=== PATIENT | female | born 1960 | race African-American/Black ===

== ENCOUNTER 2021-10-04 08:16 | Inpatient (IN) | payer OTHER, BC ==
[~2021-10-04] VITALS: Ht 165.1 cm; Wt 46.7 kg
[2021-10-04] MEDS ORDERED: VANCOMYCIN 1 G PREMIX 200 ML IV ONE (09:15)
[2021-10-04] MEDS ORDERED: SODIUM CHLORIDE 0.9% 1000ML BAG (SEPSIS BOLUS) IV ONE (09:15)
[2021-10-04] MEDS ORDERED: PIPERACILLIN/TAZ 3.375G PREMIX 50 ML IV ONE (09:15)
[2021-10-04 09:43] LABS: BASOPHILS % 0.1 % (0.0-2.0); HEMATOCRIT. 51.1 % (36.0-48.0); HEMOGLOBIN. 17.8 g/dL (12.0-16.0); LYMPHOCYTES % 9.5 % (20.0-50.0); MEAN CORPUSCULAR HEMOGLOBIN 38.3 pg (28.0-32.0); MONOCYTES % 8.2 % (2.0-8.0); NEUTROPHILS % 82.2 % (40.0-76.0); PLATELET 202 x1000/uL (130-400); RED BLOOD CELL COUNT 4.64 mill/uL (4.2-5.4); RED CELL DISTRIBUTION WIDTH 12.8 % (11.6-14.6)
[2021-10-04 09:50] LABS: CHLORIDE 98 mEq/L (98-107)
[2021-10-04 10:26] LABS: PLATELET ESTIMATE NORMAL
[2021-10-04] MEDS ORDERED: MORPHINE SULFATE 4 MG/ML CPJ (NOT FOR IM USE) IV PRN (18:30)
[2021-10-04] MEDS ORDERED: ALBUMIN HUMAN 25GM/100ML (25%) IV ONE (18:37)
[2021-10-04] MEDS ORDERED: CALCIUM CHLORIDE 1GM/10ML SYR IV ONE (18:37)
[2021-10-04] MEDS ORDERED: SODIUM BICARBONATE 8.4% 1 MEQ/ML 50ML SYR IV ONE (18:38)
[2021-10-04] MEDS ORDERED: NALOXONE HCL 0.4MG/ML VIAL IV PRN (18:45)
[2021-10-04] MEDS ORDERED: ROCURONIUM BROMIDE 10MG/ML VIAL 5ML IV ONE (18:50)
[2021-10-04] MEDS ORDERED: PROPOFOL 200MG/20ML VIAL IV ONE (18:50)
[2021-10-04] MEDS ORDERED: POTASSIUM CHLORIDE 40MEQ/20ML INJ IV ONE (18:55)
[2021-10-04] MEDS ORDERED: BUPIVACAINE HCL 0.5% (5MG/ML) 50ML ONE (18:57)
[2021-10-04] MEDS ORDERED: SKIN ADHESIVE 0.7 GM EA TOP ONE (18:57)
[2021-10-04] MEDS ORDERED: MAGNESIUM SULFATE 5GM/10ML VIAL IV ONE (18:59)
[2021-10-04] MEDS: DEXT 5%/0.45% NACL KCL 20MEQ/L 1,000 ML IV SCH (19:30)
[2021-10-04] MEDS ORDERED: PROPOFOL 10MG/ML 100ML 100 ML IV ONE (19:37)
[2021-10-04] MEDS ORDERED: DEXAMETHASONE 4MG/ML 1ML VIAL ONE (19:49)
[2021-10-04] MEDS ORDERED: KCL 20MEQ/100ML PREMIX 100 ML IV ONE (20:00)
[2021-10-04] MEDS ORDERED: FAMOTIDINE 20MG/2ML VIAL IV SCH (20:00)
[2021-10-04] MEDS ORDERED: PIPERACILLIN/TAZOBACTAM 3.375 G in DEXTROSE 5% WATER 50 ML IV SCH (20:00)
[2021-10-04 20:56] LABS: BG BASE EXCESS -1.3 mmol/L (-2.0-2.0); BG CARBOXYHEMOGLOBIN 0.3 % (0.5-1.5); BG HCO3 ACT 23.2 mmol/L (22.0-26.0); BG METHEMOGLOBIN 0.3 % (0.0-1.5); BG OXYGEN SATURATION 59.8 % (92.0-98.5); BG OXYHEMOGLOBIN 59.4 % (94.0-97.0); BG PCO2 37.7 mmHg (35.0-45.0); BG PH 7.407 (7.350-7.450); BG PO2 32.7 mmHg (75.0-100.0); BG TOTAL HEMOGLOBIN 9.3 g/dL (12.0-18.0)
[2021-10-04] MEDS ORDERED: SODIUM CHLORIDE 0.9% INJ 10ML FLUSH IVF ONE (21:21)
[2021-10-04] MEDS ORDERED: POLYMYXIN B SULFATE 500000 UNITS/VIAL ONE (21:21)
[2021-10-04] MEDS ORDERED: MEPERIDINE HCL/PF 25MG/ML CPJ IV PRN (22:30)
[2021-10-04] MEDS ORDERED: ONDANSETRON HCL 4MG/2ML INJ IV PRN (22:30)
[2021-10-04] MEDS ORDERED: HYDROMORPHONE HCL/PF 2MG/ML CPJ IV PRN (22:30)
[2021-10-04] MEDS ORDERED: LABETALOL 5MG/ML SYR 20 MG/4 ML SYRINGE IV PRN (22:30)
[2021-10-04 23:22] LABS: CHLORIDE 113 mEq/L (98-107)
[2021-10-04 23:33] LABS: BASOPHILS % 0.1 % (0.0-2.0); EOSINOPHILS % 0.1 % (0.0-5.0); HEMATOCRIT. 40.1 % (36.0-48.0); HEMOGLOBIN. 13.8 g/dL (12.0-16.0); LYMPHOCYTES % 7.8 % (20.0-50.0); MEAN CORPUSCULAR HEMOGLOBIN 34.4 pg (28.0-32.0); MEAN CORPUSCULAR VOLUME 100.4 fL (81.0-99.0); MEAN PLATELET VOLUME 9.8 fl (7.4-10.4); MONOCYTES % 8.5 % (2.0-8.0); NEUTROPHILS % 83.5 % (40.0-76.0); PLATELET 109 x1000/uL (130-400); RED CELL DISTRIBUTION WIDTH 17.2 % (11.6-14.6)
[2021-10-04 23:36] LABS: BG FRACTION INSPIRED OXYGEN 80; BG TOTAL RESPIRATORY RATE 20 b/min; BG VENT MODE VENT - AC
[2021-10-05] VITALS (35 sets, daily range): BP systolic 96–125; BP diastolic 52–77
[2021-10-05] MEDS: DEXT 5%/0.45% NACL KCL 20MEQ/L 1,000 ML IV SCH ×4 (02:10→22:58)
[2021-10-05 04:53] LABS: BG BASE EXCESS -2.4 mmol/L (-2.0-2.0); BG CARBOXYHEMOGLOBIN 0.1 % (0.5-1.5); BG DEOXYHEMOGLOBIN 0.8 % (0.0-5.0); BG FRACTION INSPIRED OXYGEN 40; BG HCO3 ACT 18.4 mmol/L (22.0-26.0); BG METHEMOGLOBIN 0.4 % (0.0-1.5); BG OXYGEN SATURATION 99.2 % (92.0-98.5); BG OXYHEMOGLOBIN 98.7 % (94.0-97.0); BG PCO2 23.1 mmHg (35.0-45.0); BG PO2 206.5 mmHg (75.0-100.0); BG SAMPLE SITE LEFT BRACHIAL; BG TOTAL HEMOGLOBIN 14.1 g/dL (12.0-18.0); BG VENT MODE VENT - AC
[2021-10-05] MEDS ORDERED: PROPOFOL 10MG/ML 100ML 100 ML IV PRN (05:15)
[2021-10-05] MEDS: PANTOPRAZOLE SODIUM 40 MG/VIAL IV SCH ×3 (05:57→18:34)
[2021-10-05] MEDS ORDERED: PIPERACILLIN/TAZOBACTAM 3.375 G in DEXTROSE 5% WATER 50 ML IV SCH (06:00)
[2021-10-05 10:34] LABS: HEMATOCRIT. 37.3 % (36.0-48.0); HEMOGLOBIN. 12.9 g/dL (12.0-16.0); MEAN CORPUSCULAR HEMOGLOBIN 34.7 pg (28.0-32.0); MEAN CORPUSCULAR VOLUME 100.8 fL (81.0-99.0); MEAN PLATELET VOLUME 10.3 fl (7.4-10.4); PLATELET 95 x1000/uL (130-400); RED CELL DISTRIBUTION WIDTH 17.9 % (11.6-14.6)
[2021-10-05 11:04] LABS: CHLORIDE 112 mEq/L (98-107)
[2021-10-05 11:13] LABS: PHOSPHORUS 1.5 mg/dL (2.5-4.9)
[2021-10-05 12:37] LABS: PLATELET ESTIMATE DECREASED
[2021-10-05 12:50] LABS: BG BASE EXCESS -2.6 mmol/L (-2.0-2.0); BG CARBOXYHEMOGLOBIN 0.3 % (0.5-1.5); BG DEOXYHEMOGLOBIN 0.9 % (0.0-5.0); BG FRACTION INSPIRED OXYGEN 40; BG HCO3 ACT 18.7 mmol/L (22.0-26.0); BG METHEMOGLOBIN 0.3 % (0.0-1.5); BG OXYGEN SATURATION 99.1 % (92.0-98.5); BG OXYHEMOGLOBIN 98.5 % (94.0-97.0); BG PCO2 23.7 mmHg (35.0-45.0); BG PH 7.514 (7.350-7.450); BG PO2 205.3 mmHg (75.0-100.0); BG SAMPLE SITE LEFT RADIAL; BG TOTAL RESPIRATORY RATE 28 b/min; BG VENT MODE VENT - CPAP
[2021-10-05] MEDS: MEROPENEM 1,000 MG in SODIUM CHLORIDE 0.9% 100 ML IV SCH ×2 (15:25→21:11)
[2021-10-05] MEDS: MORPHINE SULFATE 2 MG/ML CPJ (NOT FOR IM USE) IV PRN (23:05)
[2021-10-06] VITALS (62 sets, daily range): BP systolic 95–131; BP diastolic 61–81
[2021-10-06] MEDS ORDERED: POTASSIUM PHOS,M-BASIC-D-BASIC 20 MMOL in DEXT 5% WATER 243.3333 ML IV NR (00:30)
[2021-10-06 05:47] LABS: HEMATOCRIT. 33.4 % (36.0-48.0); HEMOGLOBIN. 11.3 g/dL (12.0-16.0); MEAN CORPUSCULAR VOLUME 100.5 fL (81.0-99.0); MEAN PLATELET VOLUME 9.6 fl (7.4-10.4); PLATELET 67 x1000/uL (130-400); RED BLOOD CELL COUNT 3.33 mill/uL (4.2-5.4); RED CELL DISTRIBUTION WIDTH 18.5 % (11.6-14.6)
[2021-10-06 05:58] LABS: CHLORIDE 111 mEq/L (98-107)
[2021-10-06 06:04] LABS: PHOSPHORUS 2.6 mg/dL (2.5-4.9)
[2021-10-06] MEDS: MEROPENEM 1,000 MG in SODIUM CHLORIDE 0.9% 100 ML IV SCH ×3 (06:18→21:59)
[2021-10-06] MEDS: DEXT 5%/0.45% NACL KCL 20MEQ/L 1,000 ML IV SCH ×2 (06:18→14:12)
[2021-10-06] MEDS: PANTOPRAZOLE SODIUM 40 MG/VIAL IV SCH ×2 (06:18→18:26)
[2021-10-06 10:59] LABS: PLATELET ESTIMATE DECREASED
[2021-10-07] VITALS (46 sets, daily range): BP systolic 96–136; BP diastolic 44–82
[2021-10-07] MEDS: DEXT 5%/0.45% NACL KCL 20MEQ/L 1,000 ML IV SCH ×3 (02:35→16:40)
[2021-10-07] MEDS: PANTOPRAZOLE SODIUM 40 MG/VIAL IV SCH ×2 (05:43→17:27)
[2021-10-07] MEDS: MEROPENEM 1,000 MG in SODIUM CHLORIDE 0.9% 100 ML IV SCH ×3 (05:43→21:10)
[2021-10-07] MEDS: MORPHINE SULFATE 2 MG/ML CPJ (NOT FOR IM USE) IV PRN (13:13)
[2021-10-08] VITALS: BP 126/75
[2021-10-08 04:00] VITALS: BP 127/77
[2021-10-08] MEDS: PANTOPRAZOLE SODIUM 40 MG/VIAL IV SCH ×2 (06:04→18:25)
[2021-10-08] MEDS: MEROPENEM 1,000 MG in SODIUM CHLORIDE 0.9% 100 ML IV SCH ×3 (06:07→22:00)
[2021-10-08] MEDS: DEXT 5%/0.45% NACL KCL 20MEQ/L 1,000 ML IV SCH ×3 (06:08→18:25)
[2021-10-08 07:34] LABS: BASOPHILS % 0.1 % (0.0-2.0); EOSINOPHILS % 0.3 % (0.0-5.0); HEMATOCRIT. 35.3 % (36.0-48.0); HEMOGLOBIN. 11.8 g/dL (12.0-16.0); LYMPHOCYTES % 8.8 % (20.0-50.0); MEAN CORPUSCULAR HEMOGLOBIN 34.2 pg (28.0-32.0); MEAN PLATELET VOLUME 10.3 fl (7.4-10.4); NEUTROPHILS % 81.8 % (40.0-76.0); PLATELET 87 x1000/uL (130-400); RED BLOOD CELL COUNT 3.46 mill/uL (4.2-5.4)
[2021-10-08 07:58] LABS: CHLORIDE 113 mEq/L (98-107)
[2021-10-08 08:00] VITALS: BP 142/82
[2021-10-08 12:00] VITALS: BP 128/73
[2021-10-08] MEDS ORDERED: GABA-532 MT (14:25)
[2021-10-08] MEDS ORDERED: MULT-1235 PO (14:25)
[2021-10-08] MEDS ORDERED: COPP2CAP PO (14:25)
[2021-10-08] MEDS ORDERED: CYAN50009 MT (14:25)
[2021-10-08] MEDS ORDERED: LORA-250 PO (14:25)
[2021-10-08] MEDS ORDERED: OMEP40CA20 MT (14:25)
[2021-10-08] MEDS ORDERED: CHOL2000 (14:25)
[2021-10-08] MEDS ORDERED: ZOLP12.52 MT (14:25)
[2021-10-08] MEDS ORDERED: FLUT1DIS3 INH (14:25)
[2021-10-08] MEDS ORDERED: HYDR-4001 PO (14:25)
[2021-10-08] MEDS ORDERED: FLUO40CA8 MT (14:25)
[2021-10-08 16:00] VITALS: BP 131/79
[2021-10-08 20:00] VITALS: BP 119/73
[2021-10-09] VITALS: BP 136/67
[2021-10-09] MEDS: DEXT 5%/0.45% NACL KCL 20MEQ/L 1,000 ML IV SCH ×4 (01:38→21:38)
[2021-10-09 04:00] VITALS: BP 133/75
[2021-10-09] MEDS: MEROPENEM 1,000 MG in SODIUM CHLORIDE 0.9% 100 ML IV SCH ×3 (05:51→21:38)
[2021-10-09] MEDS: PANTOPRAZOLE SODIUM 40 MG/VIAL IV SCH ×2 (05:51→18:13)
[2021-10-09 06:54] LABS: INR 1.1; PROTHROMBIN TIME 11.5 sec (9.6-11.0)
[2021-10-09 06:59] LABS: BASOPHILS % 0.1 % (0.0-2.0); EOSINOPHILS % 0.3 % (0.0-5.0); HEMATOCRIT. 32.3 % (36.0-48.0); MEAN CORPUSCULAR HEMOGLOBIN 34.7 pg (28.0-32.0); MEAN CORPUSCULAR VOLUME 102.2 fL (81.0-99.0); MEAN PLATELET VOLUME 10.4 fl (7.4-10.4); NEUTROPHILS % 83.6 % (40.0-76.0); PLATELET 144 x1000/uL (130-400); RED BLOOD CELL COUNT 3.16 mill/uL (4.2-5.4); RED CELL DISTRIBUTION WIDTH 16.6 % (11.6-14.6)
[2021-10-09 07:12] LABS: CHLORIDE 110 mEq/L (98-107)
[2021-10-09 07:18] LABS: PHOSPHORUS 1.7 mg/dL (2.5-4.9)
[2021-10-09 08:00] VITALS: BP 145/76
[2021-10-09 12:00] VITALS: BP 134/80
[2021-10-09] MEDS ORDERED: WATER IV NR (12:00)
[2021-10-09] MEDS ORDERED: DEXT 5% IV NR (12:00)
[2021-10-09] MEDS ORDERED: POTASSIUM PHOS M BASIC D BASIC IV NR (12:00)
[2021-10-09 16:00] VITALS: BP 144/87
[2021-10-09 20:00] VITALS: BP 130/85
[2021-10-09] MEDS ORDERED: TOTAL PARENTERAL NUTRITION 1,300 ML IV SCH (21:00)
[2021-10-09] MEDS: BLOOD SUGAR DIAGNOSTIC STRIP TEST SCH (21:00)
[2021-10-09] MEDS: FAT EMULSIONS 500 ML IV SCH (21:37)
[2021-10-10] VITALS: BP 139/84
[2021-10-10] MEDS: BLOOD SUGAR DIAGNOSTIC STRIP TEST SCH ×4 (03:38→21:45)
[2021-10-10] MEDS: DEXT 5%/0.45% NACL KCL 20MEQ/L 1,000 ML IV SCH ×3 (03:40→18:50)
[2021-10-10 04:00] VITALS: BP 122/74
[2021-10-10] MEDS: MEROPENEM 1,000 MG in SODIUM CHLORIDE 0.9% 100 ML IV SCH ×2 (05:12→13:54)
[2021-10-10] MEDS: PANTOPRAZOLE SODIUM 40 MG/VIAL IV SCH ×2 (06:16→18:50)
[2021-10-10 06:38] LABS: CHLORIDE 109 mEq/L (98-107)
[2021-10-10 08:00] VITALS: BP 132/78
[2021-10-10] MEDS ORDERED: POTASSIUM CHLORIDE INJ 40 MEQ in DEXT 5% WATER 250 ML IV NR (11:30)
[2021-10-10 11:45] LABS: BG TIDAL VOLUME(mL) 450 mL; BG VENT MODE VENT-AC; BG VENT RATE 14 set
[2021-10-10 11:46] LABS: BG FRACTION INSPIRED OXYGEN 80
[2021-10-10 11:48] LABS: BG PCO2 25.1 mmHg (35.0-45.0); BG PH 7.523 (7.350-7.450); BG PO2 395.6 mmHg (75.0-100.0)
[2021-10-10 11:49] LABS: BG CARBOXYHEMOGLOBIN 0.2 % (0.5-1.5); BG DEOXYHEMOGLOBIN 0.5 % (0.0-5.0); BG HCO3 ACT 20.2 mmol/L (22.0-26.0); BG METHEMOGLOBIN 0.3 % (0.0-1.5); BG OXYGEN SATURATION 99.5 % (92.0-98.5)
[2021-10-10 12:00] VITALS: BP 121/76
[2021-10-10] MEDS ORDERED: POTASSIUM CHLORIDE INJ 40 MEQ in DEXT 5% WATER 250 ML IV SCH (12:00)
[2021-10-10 16:00] VITALS: BP 141/78
[2021-10-10] MEDS ORDERED: MAGNESIUM 2 G PREMIX 50 ML IV NR (18:00)
[2021-10-10] MEDS: ONDANSETRON HCL 4MG/2ML INJ IV PRN ×2 (18:50→21:44)
[2021-10-10 20:00] VITALS: BP 144/81
[2021-10-10] MEDS ORDERED: TOTAL PARENTERAL NUTRITION 2,000 ML IV SCH (21:00)
[2021-10-10] MEDS ORDERED: MORPHINE SULFATE 2 MG/ML CPJ (NOT FOR IM USE) IV PRN (22:00)
[2021-10-10] MEDS: MORPHINE SULFATE 2 MG/ML CPJ (NOT FOR IM USE) IV PRN (22:04)
[2021-10-10] MEDS ORDERED: NALOXONE HCL 0.4MG/ML VIAL IV PRN (22:15)
[2021-10-11] VITALS: BP 123/73
[2021-10-11] MEDS: BLOOD SUGAR DIAGNOSTIC STRIP TEST SCH ×4 (03:06→21:06)
[2021-10-11 04:00] VITALS: BP 126/76
[2021-10-11] MEDS: PANTOPRAZOLE SODIUM 40 MG/VIAL IV SCH ×2 (05:12→17:47)
[2021-10-11 06:57] LABS: CHLORIDE 104 mEq/L (98-107)
[2021-10-11 07:12] LABS: HEMATOCRIT. 31.7 % (36.0-48.0); MEAN CORPUSCULAR VOLUME 100.6 fL (81.0-99.0); MEAN PLATELET VOLUME 9.5 fl (7.4-10.4); PLATELET 262 x1000/uL (130-400); RED BLOOD CELL COUNT 3.15 mill/uL (4.2-5.4); RED CELL DISTRIBUTION WIDTH 16.8 % (11.6-14.6)
[2021-10-11 08:00] VITALS: BP 110/67
[2021-10-11 12:00] VITALS: BP 129/75
[2021-10-11] MEDS: MEROPENEM 1,000 MG in SODIUM CHLORIDE 0.9% 100 ML IV SCH ×2 (13:02→21:57)
[2021-10-11] MEDS: MORPHINE SULFATE 2 MG/ML CPJ (NOT FOR IM USE) IV PRN ×2 (13:03→21:53)
[2021-10-11 16:00] VITALS: BP 119/70
[2021-10-11 18:13] LABS: PLATELET ESTIMATE NORMAL
[2021-10-11 20:00] VITALS: BP 135/72
[2021-10-11] MEDS: FAT EMULSIONS 500 ML IV SCH (21:05)
[2021-10-11] MEDS: TOTAL PARENTERAL NUTRITION IV SCH (21:23)
[2021-10-12] VITALS: BP 116/76
[2021-10-12] MEDS: BLOOD SUGAR DIAGNOSTIC STRIP TEST SCH ×4 (03:00→21:06)
[2021-10-12 04:00] VITALS: BP 125/83
[2021-10-12] MEDS: PANTOPRAZOLE SODIUM 40 MG/VIAL IV SCH ×2 (05:33→17:28)
[2021-10-12] MEDS: MEROPENEM 1,000 MG in SODIUM CHLORIDE 0.9% 100 ML IV SCH ×3 (05:33→21:11)
[2021-10-12 06:42] LABS: CHLORIDE 100 mEq/L (98-107)
[2021-10-12 06:56] LABS: HEMATOCRIT. 33.4 % (36.0-48.0); HEMOGLOBIN. 11.1 g/dL (12.0-16.0); MEAN CORPUSCULAR HEMOGLOBIN 33.7 pg (28.0-32.0); MEAN CORPUSCULAR VOLUME 101.6 fL (81.0-99.0); MEAN PLATELET VOLUME 10.2 fl (7.4-10.4); PLATELET 315 x1000/uL (130-400); RED BLOOD CELL COUNT 3.29 mill/uL (4.2-5.4); RED CELL DISTRIBUTION WIDTH 16.7 % (11.6-14.6)
[2021-10-12 08:00] VITALS: BP 119/62
[2021-10-12 09:47] LABS: PLATELET ESTIMATE NORMAL
[2021-10-12 12:00] VITALS: BP 110/69
[2021-10-12 16:00] VITALS: BP 120/69
[2021-10-12 20:00] VITALS: BP 124/72
[2021-10-12] MEDS: TOTAL PARENTERAL NUTRITION IV SCH (21:11)
[2021-10-13] VITALS: BP 117/78
[2021-10-13 04:00] VITALS: BP 120/72
[2021-10-13] MEDS: PANTOPRAZOLE SODIUM 40 MG/VIAL IV SCH ×2 (05:12→17:43)
[2021-10-13] MEDS: MEROPENEM 1,000 MG in SODIUM CHLORIDE 0.9% 100 ML IV SCH ×3 (05:12→21:12)
[2021-10-13] MEDS ORDERED: BLOOD SUGAR DIAGNOSTIC STRIP TEST SCH (06:00)
[2021-10-13 08:00] VITALS: BP 140/74
[2021-10-13 08:02] LABS: BASOPHILS % 0.2 % (0.0-2.0); CHLORIDE 100 mEq/L (98-107); EOSINOPHILS % 0.2 % (0.0-5.0); HEMATOCRIT. 33.5 % (36.0-48.0); HEMOGLOBIN. 11.1 g/dL (12.0-16.0); MEAN CORPUSCULAR HEMOGLOBIN 33.8 pg (28.0-32.0); MEAN CORPUSCULAR VOLUME 102.3 fL (81.0-99.0); MEAN PLATELET VOLUME 9.7 fl (7.4-10.4); MONOCYTES % 6.3 % (2.0-8.0); NEUTROPHILS % 85.3 % (40.0-76.0); PLATELET 381 x1000/uL (130-400); RED BLOOD CELL COUNT 3.28 mill/uL (4.2-5.4); RED CELL DISTRIBUTION WIDTH 16.4 % (11.6-14.6)
[2021-10-13 12:00] VITALS: BP 122/74
[2021-10-13] MEDS: BLOOD SUGAR DIAGNOSTIC STRIP TEST SCH ×2 (13:18→21:24)
[2021-10-13 16:00] VITALS: BP 124/71
[2021-10-13 20:00] VITALS: BP 128/66
[2021-10-13] MEDS: MORPHINE SULFATE 2 MG/ML CPJ (NOT FOR IM USE) IV PRN (20:50)
[2021-10-13] MEDS: TOTAL PARENTERAL NUTRITION IV SCH (21:12)
[2021-10-14] VITALS: BP 128/72
[2021-10-14 04:00] VITALS: BP 128/71
[2021-10-14] MEDS: MEROPENEM 1,000 MG in SODIUM CHLORIDE 0.9% 100 ML IV SCH ×3 (05:25→21:09)
[2021-10-14] MEDS: PANTOPRAZOLE SODIUM 40 MG/VIAL IV SCH ×2 (05:25→17:37)
[2021-10-14] MEDS: BLOOD SUGAR DIAGNOSTIC STRIP TEST SCH ×3 (05:28→21:46)
[2021-10-14 06:44] LABS: BASOPHILS % 0.3 % (0.0-2.0); EOSINOPHILS % 0.2 % (0.0-5.0); HEMATOCRIT. 31.8 % (36.0-48.0); HEMOGLOBIN. 10.6 g/dL (12.0-16.0); LYMPHOCYTES % 7.4 % (20.0-50.0); MEAN CORPUSCULAR HEMOGLOBIN 33.6 pg (28.0-32.0); MEAN CORPUSCULAR VOLUME 100.3 fL (81.0-99.0); MEAN PLATELET VOLUME 9.4 fl (7.4-10.4); MONOCYTES % 7.6 % (2.0-8.0); NEUTROPHILS % 84.5 % (40.0-76.0); PLATELET 483 x1000/uL (130-400); RED BLOOD CELL COUNT 3.17 mill/uL (4.2-5.4); RED CELL DISTRIBUTION WIDTH 16.4 % (11.6-14.6)
[2021-10-14 08:00] VITALS: BP 119/69
[2021-10-14 12:00] VITALS: BP 131/73
[2021-10-14 16:00] VITALS: BP 127/71
[2021-10-14 20:00] VITALS: BP 131/79
[2021-10-14] MEDS ORDERED: TOTAL PARENTERAL NUTRITION IV SCH (21:00)
[2021-10-15] VITALS: BP 142/80
[2021-10-15 04:00] VITALS: BP 132/75
[2021-10-15] MEDS ORDERED: DIATR MEGLU/DIATRIZOATE SOLN 30ML ONE (05:38)
[2021-10-15] MEDS: MEROPENEM 1,000 MG in SODIUM CHLORIDE 0.9% 100 ML IV SCH ×3 (05:56→22:30)
[2021-10-15] MEDS: BLOOD SUGAR DIAGNOSTIC STRIP TEST SCH ×3 (05:56→22:34)
[2021-10-15] MEDS: PANTOPRAZOLE SODIUM 40 MG/VIAL IV SCH ×2 (05:56→18:11)
[2021-10-15] MEDS ORDERED: DIATR MEGLU/DIATRIZOATE SOLN 30ML PO SCH (06:30)
[2021-10-15 07:19] LABS: BASOPHILS % 0.5 % (0.0-2.0); EOSINOPHILS % 0.2 % (0.0-5.0); HEMATOCRIT. 30.3 % (36.0-48.0); HEMOGLOBIN. 10.3 g/dL (12.0-16.0); LYMPHOCYTES % 9.4 % (20.0-50.0); MEAN CORPUSCULAR HEMOGLOBIN 34.1 pg (28.0-32.0); MEAN CORPUSCULAR VOLUME 100.2 fL (81.0-99.0); MEAN PLATELET VOLUME 9.6 fl (7.4-10.4); MONOCYTES % 8.3 % (2.0-8.0); NEUTROPHILS % 81.6 % (40.0-76.0); PLATELET 506 x1000/uL (130-400); RED BLOOD CELL COUNT 3.02 mill/uL (4.2-5.4); RED CELL DISTRIBUTION WIDTH 15.9 % (11.6-14.6)
[2021-10-15 07:42] LABS: CHLORIDE 92 mEq/L (98-107)
[2021-10-15 08:00] VITALS: BP 126/83
[2021-10-15 12:00] VITALS: BP 134/79
[2021-10-15 16:00] VITALS: BP 136/83
[2021-10-15 20:00] VITALS: BP 132/79
[2021-10-15] MEDS: TOTAL PARENTERAL NUTRITION IV SCH (22:44)
[2021-10-15] MEDS: FAT EMULSIONS 500 ML IV SCH (22:44)
[2021-10-16] VITALS: BP 134/76
[2021-10-16 04:00] VITALS: BP 124/82
[2021-10-16] MEDS: PANTOPRAZOLE SODIUM 40 MG/VIAL IV SCH ×2 (05:25→18:41)
[2021-10-16] MEDS: BLOOD SUGAR DIAGNOSTIC STRIP TEST SCH ×3 (05:25→21:00)
[2021-10-16] MEDS: MEROPENEM 1,000 MG in SODIUM CHLORIDE 0.9% 100 ML IV SCH ×3 (05:25→21:00)
[2021-10-16 08:00] VITALS: BP 119/69
[2021-10-16 12:00] VITALS: BP 124/74
[2021-10-16 16:00] VITALS: BP 118/71
[2021-10-16 20:00] VITALS: BP 125/70
[2021-10-16] MEDS: TOTAL PARENTERAL NUTRITION IV SCH (20:48)
[2021-10-17] VITALS: BP 131/76
[2021-10-17 04:00] VITALS: BP 109/68
[2021-10-17] MEDS: PANTOPRAZOLE SODIUM 40 MG/VIAL IV SCH ×2 (05:26→18:03)
[2021-10-17] MEDS: MEROPENEM 1,000 MG in SODIUM CHLORIDE 0.9% 100 ML IV SCH ×2 (05:26→15:55)
[2021-10-17] MEDS: BLOOD SUGAR DIAGNOSTIC STRIP TEST SCH ×3 (05:26→21:40)
[2021-10-17 07:15] LABS: BASOPHILS % 0.4 % (0.0-2.0); EOSINOPHILS % 0.3 % (0.0-5.0); HEMOGLOBIN. 9.9 g/dL (12.0-16.0); MEAN CORPUSCULAR HEMOGLOBIN 34.5 pg (28.0-32.0); MEAN CORPUSCULAR VOLUME 101.2 fL (81.0-99.0); MEAN PLATELET VOLUME 9.2 fl (7.4-10.4); MONOCYTES % 10.8 % (2.0-8.0); NEUTROPHILS % 78.5 % (40.0-76.0); PLATELET 504 x1000/uL (130-400); RED BLOOD CELL COUNT 2.86 mill/uL (4.2-5.4); RED CELL DISTRIBUTION WIDTH 15.5 % (11.6-14.6)
[2021-10-17 07:55] LABS: CHLORIDE 94 mEq/L (98-107)
[2021-10-17 08:02] LABS: PHOSPHORUS 2.2 mg/dL (2.5-4.9)
[2021-10-17 12:00] VITALS: BP 108/72
[2021-10-17 15:59] VITALS: BP 120/73
[2021-10-17] MEDS: PIPERACILLIN/TAZOBACTAM 3.375 G in DEXTROSE 5% WATER 50 ML IV SCH ×2 (18:03→22:55)
[2021-10-17 20:00] VITALS: BP 121/73
[2021-10-17] MEDS ORDERED: TOTAL PARENTERAL NUTRITION IV SCH (21:00)
[2021-10-18] VITALS: BP 117/69
[2021-10-18 04:00] VITALS: BP 123/71
[2021-10-18] MEDS: PANTOPRAZOLE SODIUM 40 MG/VIAL IV SCH ×2 (05:26→18:03)
[2021-10-18] MEDS: BLOOD SUGAR DIAGNOSTIC STRIP TEST SCH ×3 (05:26→22:00)
[2021-10-18] MEDS: PIPERACILLIN/TAZOBACTAM 3.375 G in DEXTROSE 5% WATER 50 ML IV SCH ×3 (05:26→22:05)
[2021-10-18 08:00] VITALS: BP 124/68
[2021-10-18 10:47] LABS: CHLORIDE 96 mEq/L (98-107)
[2021-10-18 10:53] LABS: PHOSPHORUS 2.7 mg/dL (2.5-4.9)
[2021-10-18 12:00] VITALS: BP 123/72
[2021-10-18 16:00] VITALS: BP 125/76
[2021-10-18 20:00] VITALS: BP 130/70
[2021-10-18] MEDS: FAT EMULSIONS 500 ML IV SCH (21:58)
[2021-10-18] MEDS: TOTAL PARENTERAL NUTRITION IV SCH (22:00)
[2021-10-19] VITALS: BP 123/72
[2021-10-19 04:00] VITALS: BP 120/70
[2021-10-19] MEDS: PIPERACILLIN/TAZOBACTAM 3.375 G in DEXTROSE 5% WATER 50 ML IV SCH ×3 (05:19→21:02)
[2021-10-19] MEDS: PANTOPRAZOLE SODIUM 40 MG/VIAL IV SCH ×2 (05:19→17:21)
[2021-10-19] MEDS: BLOOD SUGAR DIAGNOSTIC STRIP TEST SCH ×3 (06:34→22:00)
[2021-10-19 08:00] VITALS: BP 140/77
[2021-10-19 12:00] VITALS: BP 121/76
[2021-10-19 13:17] LABS: BASOPHILS % 0.4 % (0.0-2.0); EOSINOPHILS % 0.6 % (0.0-5.0); HEMATOCRIT. 30.5 % (36.0-48.0); LYMPHOCYTES % 11.6 % (20.0-50.0); MEAN CORPUSCULAR HEMOGLOBIN 32.9 pg (28.0-32.0); MEAN CORPUSCULAR VOLUME 100.9 fL (81.0-99.0); MEAN PLATELET VOLUME 8.6 fl (7.4-10.4); MONOCYTES % 12.5 % (2.0-8.0); NEUTROPHILS % 74.9 % (40.0-76.0); PLATELET 547 x1000/uL (130-400); RED BLOOD CELL COUNT 3.03 mill/uL (4.2-5.4); RED CELL DISTRIBUTION WIDTH 15.6 % (11.6-14.6)
[2021-10-19 16:00] VITALS: BP 118/72
[2021-10-19] MEDS ORDERED: PNEUMOC 13-VAL CONJ-DIP CRM/PF 0.5 ML DISP.SYRIN IM ONE ×2 (18:00)
[2021-10-19] MEDS ORDERED: INFLUENZA VACCINE 05/PF 0.5 ML SYRINGE IM ONE (18:00)
[2021-10-19 20:00] VITALS: BP 149/88
[2021-10-19] MEDS: TOTAL PARENTERAL NUTRITION IV SCH (21:04)
[2021-10-19] MEDS: ACETAMINOPHEN 325MG TABLET PO PRN (23:59)
[2021-10-20] MEDS: PIPERACILLIN/TAZOBACTAM 3.375 G in DEXTROSE 5% WATER 50 ML IV SCH ×3 (05:40→20:58)
[2021-10-20] MEDS: PANTOPRAZOLE SODIUM 40 MG/VIAL IV SCH ×2 (05:40→18:05)
[2021-10-20] MEDS: BLOOD SUGAR DIAGNOSTIC STRIP TEST SCH ×3 (06:00→22:54)
[2021-10-20 06:30] LABS: BASOPHILS % 0.5 % (0.0-2.0); EOSINOPHILS % 0.8 % (0.0-5.0); HEMATOCRIT. 29.4 % (36.0-48.0); HEMOGLOBIN. 10.1 g/dL (12.0-16.0); MEAN CORPUSCULAR HEMOGLOBIN 34.9 pg (28.0-32.0); MEAN CORPUSCULAR VOLUME 101.4 fL (81.0-99.0); MEAN PLATELET VOLUME 8.7 fl (7.4-10.4); MONOCYTES % 12.9 % (2.0-8.0); NEUTROPHILS % 72.8 % (40.0-76.0); PLATELET 506 x1000/uL (130-400); RED CELL DISTRIBUTION WIDTH 15.5 % (11.6-14.6)
[2021-10-20 08:00] VITALS: BP 138/81
[2021-10-20 12:00] VITALS: BP 128/71
[2021-10-20 16:00] VITALS: BP 115/68
[2021-10-20] MEDS: ACETAMINOPHEN 325MG TABLET PO PRN (18:30)
[2021-10-20 20:00] VITALS: BP 121/72
[2021-10-20] MEDS: TOTAL PARENTERAL NUTRITION IV SCH (21:10)
[2021-10-21] VITALS: BP 128/75
[2021-10-21 04:00] VITALS: BP 123/74
[2021-10-21] MEDS: PANTOPRAZOLE SODIUM 40 MG/VIAL IV SCH ×2 (05:41→17:47)
[2021-10-21] MEDS: PIPERACILLIN/TAZOBACTAM 3.375 G in DEXTROSE 5% WATER 50 ML IV SCH ×3 (05:41→21:21)
[2021-10-21] MEDS: BLOOD SUGAR DIAGNOSTIC STRIP TEST SCH ×3 (06:00→21:19)
[2021-10-21 08:00] VITALS: BP 130/73
[2021-10-21] MEDS: FLUOXETINE HCL 20MG CAPSULE PO SCH (09:33)
[2021-10-21 12:00] VITALS: BP 123/72
[2021-10-21] MEDS: IPRATROPIUM/ALBUTEROL 0.5-3(2.5)MG/3ML NEB HHN SCH ×2 (15:06→21:04)
[2021-10-21 16:00] VITALS: BP 128/74
[2021-10-21] MEDS: ACETAMINOPHEN 325MG TABLET PO PRN (17:52)
[2021-10-21] MEDS ORDERED: IPRATROPIUM/ALBUTEROL 0.5-3(2.5)MG/3ML NEB HHN SCH (18:00)
[2021-10-21 20:00] VITALS: BP 120/71
[2021-10-21 20:53] LABS: PHOSPHORUS 3.3 mg/dL (2.5-4.9)
[2021-10-21] MEDS: TOTAL PARENTERAL NUTRITION IV SCH (21:23)
[2021-10-22] VITALS: BP 132/77
[2021-10-22] MEDS: IPRATROPIUM/ALBUTEROL 0.5-3(2.5)MG/3ML NEB HHN SCH ×3 (01:58→14:04)
[2021-10-22 04:00] VITALS: BP 112/60
[2021-10-22] MEDS: PANTOPRAZOLE SODIUM 40 MG/VIAL IV SCH ×2 (05:05→18:17)
[2021-10-22] MEDS: PIPERACILLIN/TAZOBACTAM 3.375 G in DEXTROSE 5% WATER 50 ML IV SCH ×2 (05:05→13:31)
[2021-10-22] MEDS: BLOOD SUGAR DIAGNOSTIC STRIP TEST SCH ×3 (05:05→20:57)
[2021-10-22 06:45] LABS: BASOPHILS % 0.5 % (0.0-2.0); EOSINOPHILS % 0.8 % (0.0-5.0); HEMATOCRIT. 29.8 % (36.0-48.0); HEMOGLOBIN. 9.7 g/dL (12.0-16.0); LYMPHOCYTES % 14.7 % (20.0-50.0); MEAN CORPUSCULAR HEMOGLOBIN 33.1 pg (28.0-32.0); MEAN CORPUSCULAR VOLUME 102.1 fL (81.0-99.0); MEAN PLATELET VOLUME 8.4 fl (7.4-10.4); PLATELET 510 x1000/uL (130-400); RED BLOOD CELL COUNT 2.92 mill/uL (4.2-5.4); RED CELL DISTRIBUTION WIDTH 15.9 % (11.6-14.6)
[2021-10-22 07:20] LABS: CHLORIDE 103 mEq/L (98-107)
[2021-10-22 08:00] VITALS: BP 125/75
[2021-10-22] MEDS: ACETAMINOPHEN 325MG TABLET PO PRN ×2 (08:49→13:32)
[2021-10-22] MEDS: FLUOXETINE HCL 20MG CAPSULE PO SCH (08:49)
[2021-10-22 12:00] VITALS: BP 119/77
[2021-10-22] MEDS ORDERED: [UNRECOGNIZED DRUG - OTHER] IM SCH (14:00)
[2021-10-22 16:00] VITALS: BP 126/76
[2021-10-22] MEDS: NYSTATIN POWDER 15GM TOP SCH (18:17)
[2021-10-22 20:00] VITALS: BP 122/71
[2021-10-22] MEDS: FAT EMULSIONS 500 ML IV SCH (20:57)
[2021-10-22] MEDS: TOTAL PARENTERAL NUTRITION IV SCH (21:01)
[2021-10-23] VITALS: BP 126/71
[2021-10-23] MEDS: ACETAMINOPHEN 325MG TABLET PO PRN ×3 (00:23→22:07)
[2021-10-23 04:00] VITALS: BP 140/83
[2021-10-23] MEDS: PANTOPRAZOLE SODIUM 40 MG/VIAL IV SCH (06:38)
[2021-10-23] MEDS: BLOOD SUGAR DIAGNOSTIC STRIP TEST SCH ×3 (06:38→22:07)
[2021-10-23 08:00] VITALS: BP 126/78
[2021-10-23] MEDS ORDERED: [UNRECOGNIZED DRUG - OTHER] IM SCH (09:00)
[2021-10-23] MEDS ORDERED: [UNRECOGNIZED DRUG - OTHER] IM SCH (09:00)
[2021-10-23] MEDS: FLUOXETINE HCL 20MG CAPSULE PO SCH (09:30)
[2021-10-23] MEDS: NYSTATIN POWDER 15GM TOP SCH (09:30)
[2021-10-23 12:00] VITALS: BP 122/71
[2021-10-23 16:00] VITALS: BP 109/61
[2021-10-23 20:00] VITALS: BP 122/76
[2021-10-23] MEDS: PANTOPRAZOLE 40MG DR TABLET PO SCH (21:52)
[2021-10-24] VITALS: BP 127/71
[2021-10-24 04:00] VITALS: BP 121/57
[2021-10-24 06:25] LABS: BASOPHILS % 0.6 % (0.0-2.0); EOSINOPHILS % 1.1 % (0.0-5.0); HEMATOCRIT. 30.3 % (36.0-48.0); LYMPHOCYTES % 14.5 % (20.0-50.0); MEAN CORPUSCULAR HEMOGLOBIN 33.1 pg (28.0-32.0); MEAN CORPUSCULAR VOLUME 100.2 fL (81.0-99.0); MEAN PLATELET VOLUME 9.1 fl (7.4-10.4); MONOCYTES % 13.5 % (2.0-8.0); NEUTROPHILS % 70.3 % (40.0-76.0); PLATELET 548 x1000/uL (130-400); RED BLOOD CELL COUNT 3.03 mill/uL (4.2-5.4); RED CELL DISTRIBUTION WIDTH 15.7 % (11.6-14.6)
[2021-10-24 06:37] LABS: CHLORIDE 101 mEq/L (98-107)
[2021-10-24] MEDS: PANTOPRAZOLE 40MG DR TABLET PO SCH ×2 (06:47→20:50)
[2021-10-24] MEDS: BLOOD SUGAR DIAGNOSTIC STRIP TEST SCH ×3 (06:47→22:20)
[2021-10-24] MEDS: IPRATROPIUM/ALBUTEROL 0.5-3(2.5)MG/3ML NEB HHN SCH ×4 (09:12→19:56)
[2021-10-24] MEDS: FLUOXETINE HCL 20MG CAPSULE PO SCH (09:23)
[2021-10-24] MEDS: NYSTATIN POWDER 15GM TOP SCH (09:24)
[2021-10-24] MEDS: ACETAMINOPHEN 325MG TABLET PO PRN ×2 (15:05→20:50)
[2021-10-24 20:00] VITALS: BP 120/79
[2021-10-25] VITALS: BP 127/73
[2021-10-25] MEDS: IPRATROPIUM/ALBUTEROL 0.5-3(2.5)MG/3ML NEB HHN SCH ×4 (01:58→21:10)
[2021-10-25 04:00] VITALS: BP 130/66
[2021-10-25] MEDS: BLOOD SUGAR DIAGNOSTIC STRIP TEST SCH ×3 (06:17→22:30)
[2021-10-25] MEDS: PANTOPRAZOLE 40MG DR TABLET PO SCH ×2 (06:17→22:30)
[2021-10-25 07:55] VITALS: BP 129/78
[2021-10-25] MEDS: NYSTATIN POWDER 15GM TOP SCH (08:28)
[2021-10-25] MEDS: FLUOXETINE HCL 20MG CAPSULE PO SCH (08:28)
[2021-10-25] MEDS: ACETAMINOPHEN 325MG TABLET PO PRN ×2 (10:00→22:30)
[2021-10-25 12:00] VITALS: BP 131/75
[2021-10-25 16:00] VITALS: BP 139/81
[2021-10-25 20:00] VITALS: BP 120/69
[2021-10-26] VITALS: BP 111/70
[2021-10-26] MEDS: IPRATROPIUM/ALBUTEROL 0.5-3(2.5)MG/3ML NEB HHN SCH ×2 (02:26→08:40)
[2021-10-26 04:00] VITALS: BP 115/69
[2021-10-26] MEDS: ACETAMINOPHEN 325MG TABLET PO PRN ×4 (04:53→20:52)
[2021-10-26] MEDS: BLOOD SUGAR DIAGNOSTIC STRIP TEST SCH ×3 (06:42→21:36)
[2021-10-26] MEDS: PANTOPRAZOLE 40MG DR TABLET PO SCH ×2 (06:42→20:51)
[2021-10-26 08:00] VITALS: BP 124/73
[2021-10-26] MEDS: NYSTATIN POWDER 15GM TOP SCH (09:26)
[2021-10-26] MEDS: FLUOXETINE HCL 20MG CAPSULE PO SCH (09:26)
[2021-10-27] MEDS: ACETAMINOPHEN 325MG TABLET PO PRN ×3 (04:27→20:38)
[2021-10-27] MEDS: PANTOPRAZOLE 40MG DR TABLET PO SCH ×2 (06:49→20:38)
[2021-10-27] MEDS: BLOOD SUGAR DIAGNOSTIC STRIP TEST SCH ×3 (06:58→20:41)
[2021-10-27] MEDS: IPRATROPIUM/ALBUTEROL 0.5-3(2.5)MG/3ML NEB HHN SCH ×3 (08:14→20:43)
[2021-10-27] MEDS: FLUOXETINE HCL 20MG CAPSULE PO SCH (09:48)
[2021-10-27] MEDS: NYSTATIN POWDER 15GM TOP SCH (09:49)
[2021-10-27 20:00] VITALS: BP 124/76
[2021-10-28] VITALS: BP 133/73
[2021-10-28] MEDS: IPRATROPIUM/ALBUTEROL 0.5-3(2.5)MG/3ML NEB HHN SCH ×4 (01:12→21:44)
[2021-10-28] MEDS: ACETAMINOPHEN 325MG TABLET PO PRN ×4 (02:23→21:34)
[2021-10-28] MEDS: BLOOD SUGAR DIAGNOSTIC STRIP TEST SCH ×3 (05:56→21:43)
[2021-10-28] MEDS: PANTOPRAZOLE 40MG DR TABLET PO SCH ×2 (06:14→21:33)
[2021-10-28 08:00] VITALS: BP 127/77
[2021-10-28] MEDS: FLUOXETINE HCL 20MG CAPSULE PO SCH (09:29)
[2021-10-28] MEDS: NYSTATIN POWDER 15GM TOP SCH (09:29)
[2021-10-28 12:00] VITALS: BP 128/77
[2021-10-28 16:00] VITALS: BP 120/68
[2021-10-28 20:00] VITALS: BP 118/73
[2021-10-29] VITALS: BP 126/75
[2021-10-29] MEDS: IPRATROPIUM/ALBUTEROL 0.5-3(2.5)MG/3ML NEB HHN SCH ×3 (01:00→21:25)
[2021-10-29 04:00] VITALS: BP 124/70
[2021-10-29] MEDS: PANTOPRAZOLE 40MG DR TABLET PO SCH ×2 (06:26→20:41)
[2021-10-29] MEDS: ACETAMINOPHEN 325MG TABLET PO PRN ×3 (06:27→20:41)
[2021-10-29] MEDS: BLOOD SUGAR DIAGNOSTIC STRIP TEST SCH ×4 (06:48→22:00)
[2021-10-29 08:00] VITALS: BP 135/76
[2021-10-29 08:34] LABS: CHLORIDE 105 mEq/L (98-107)
[2021-10-29] MEDS ORDERED: POTASSIUM CHLORIDE 20MEQ/PACKET PO NR ×2 (09:30→13:00)
[2021-10-29] MEDS: FLUOXETINE HCL 20MG CAPSULE PO SCH (09:34)
[2021-10-29 12:00] VITALS: BP 130/79
[2021-10-29] MEDS: MAGNESIUM 1 G PREMIX 100 ML IV NR (15:00)
[2021-10-29 16:11] VITALS: BP 130/78
[2021-10-29 20:00] VITALS: BP 135/78
[2021-10-29 21:19] LABS: BASOPHILS % 0.2 % (0.0-2.0); EOSINOPHILS % 0.2 % (0.0-5.0); HEMATOCRIT. 31.7 % (36.0-48.0); HEMOGLOBIN. 10.8 g/dL (12.0-16.0); LYMPHOCYTES % 9.2 % (20.0-50.0); MEAN CORPUSCULAR HEMOGLOBIN 33.4 pg (28.0-32.0); MEAN CORPUSCULAR VOLUME 98.4 fL (81.0-99.0); MEAN PLATELET VOLUME 8.6 fl (7.4-10.4); MONOCYTES % 8.2 % (2.0-8.0); NEUTROPHILS % 82.2 % (40.0-76.0); PLATELET 656 x1000/uL (130-400); RED BLOOD CELL COUNT 3.22 mill/uL (4.2-5.4); RED CELL DISTRIBUTION WIDTH 15.7 % (11.6-14.6)
[2021-10-30] VITALS: BP 124/73
[2021-10-30] MEDS: ACETAMINOPHEN 325MG TABLET PO PRN ×4 (00:55→20:22)
[2021-10-30] MEDS: IPRATROPIUM/ALBUTEROL 0.5-3(2.5)MG/3ML NEB HHN SCH ×4 (02:50→21:28)
[2021-10-30 04:00] VITALS: BP 131/75
[2021-10-30] MEDS: MAGNESIUM 1 G PREMIX 100 ML IV NR (04:21)
[2021-10-30] MEDS: BLOOD SUGAR DIAGNOSTIC STRIP TEST SCH ×2 (06:26→14:36)
[2021-10-30] MEDS: PANTOPRAZOLE 40MG DR TABLET PO SCH ×2 (06:26→20:22)
[2021-10-30 08:00] VITALS: BP 131/77
[2021-10-30] MEDS: FLUOXETINE HCL 20MG CAPSULE PO SCH (09:56)
[2021-10-30 12:00] VITALS: BP 133/75
[2021-10-30] MEDS ORDERED: POTASSIUM CHLORIDE 20MEQ/PACKET PO NR (14:00)
[2021-10-30 16:00] VITALS: BP 126/72
[2021-10-30 20:00] VITALS: BP 114/65
[2021-10-31] VITALS: BP 115/69
[2021-10-31] MEDS: IPRATROPIUM/ALBUTEROL 0.5-3(2.5)MG/3ML NEB HHN SCH ×3 (01:35→12:23)
[2021-10-31] MEDS: ACETAMINOPHEN 325MG TABLET PO PRN ×2 (02:15→11:25)
[2021-10-31 04:00] VITALS: BP 121/76
[2021-10-31] MEDS: BLOOD SUGAR DIAGNOSTIC STRIP TEST SCH ×2 (06:31→14:09)
[2021-10-31] MEDS: PANTOPRAZOLE 40MG DR TABLET PO SCH (06:32)
[2021-10-31 08:00] VITALS: BP 129/92
[2021-10-31] MEDS: FLUOXETINE HCL 20MG CAPSULE PO SCH (08:36)
[2021-10-31 12:00] VITALS: BP 125/72
[2021-10-31 13:23] LABS: CHLORIDE 107 mEq/L (98-107)
[2021-10-31 14:16] VITALS: BP 125/72
[2021-11-20] MEDS ORDERED: [UNRECOGNIZED DRUG - OTHER] IM SCH (09:00)
[2021-12-14] MEDS ORDERED: PNEUMOCOCCAL 23-VAL P-SAC VAC 0.5 ML IM ONE (18:00)
[2021-12-18] MEDS ORDERED: [UNRECOGNIZED DRUG - OTHER] IM SCH (09:00)
== END 2021-10-31 16:30 | disposition home health service (06) | DRG 853 ==
LOC: ER 08:16 → EDBEDREQSVC 10:09 → EDBEDREQTM 10:09 → EDBEDREQ 12:22 → EDBEDREQTM 12:22 → ENRESERV 13:18 → CANRESERV 15:56 → ENRESERVTM 15:56 → CVICU 10-05 02:30 → CANBEDREQ 10-05 03:03 → CVICU 10-05 04:00 → 6EST 10-07 15:00
PROVIDERS: ADMIT Internal Medicine; ATTEND Internal Medicine
PROC: 30233N1 Transfusion of Nonautologous Red Blood Cells into Peripheral Vein, Percutaneous Approach (ICD-10-PCS; 2021-10-04)
PROC: 07TP0ZZ Resection of Spleen, Open Approach (ICD-10-PCS; principal; 2021-10-05)
PROC: 0DNW0ZZ Release Peritoneum, Open Approach (ICD-10-PCS; 2021-10-05)
PROC: 0DQ60ZZ Repair Stomach, Open Approach (ICD-10-PCS; 2021-10-05)
PROC: 02H633Z Insertion of Infusion Device into Right Atrium, Percutaneous Approach (ICD-10-PCS; 2021-10-09)
PROC: B548ZZA Ultrasonography of Superior Vena Cava, Guidance (ICD-10-PCS; 2021-10-09)
DX: A41.9 Sepsis, unspecified organism (principal); J96.01 Acute respiratory failure with hypoxia; K63.1 Perforation of intestine (nontraumatic); K65.0 Generalized (acute) peritonitis; K27.5 Chronic or unspecified peptic ulcer, site unspecified, with perforation; E87.2 Acidosis; K95.89 Other complications of other bariatric procedure; R18.8 Other ascites; E87.1 Hypo-osmolality and hyponatremia; J90 Pleural effusion, not elsewhere classified; D25.9 Leiomyoma of uterus, unspecified; E87.6 Hypokalemia; F32.A Depression, unspecified; J44.9 Chronic obstructive pulmonary disease, unspecified; G89.4 Chronic pain syndrome; E53.8 Deficiency of other specified B group vitamins; K52.9 Noninfective gastroenteritis and colitis, unspecified; E86.0 Dehydration; L89.156 Pressure-induced deep tissue damage of sacral region; K76.0 Fatty (change of) liver, not elsewhere classified; N73.6 Female pelvic peritoneal adhesions (postinfective); D69.6 Thrombocytopenia, unspecified; E83.39 Other disorders of phosphorus metabolism; F22 Delusional disorders; K57.30 Diverticulosis of large intestine without perforation or abscess without bleeding; K74.60 Unspecified cirrhosis of liver; Z20.822 Contact with and (suspected) exposure to COVID-19; N85.8 Other specified noninflammatory disorders of uterus; Y83.2 Surgical operation with anastomosis, bypass or graft as the cause of abnormal reaction of the patient, or of later complication, without mention of misadventure at the time of the procedure; K28.9 Gastrojejunal ulcer, unspecified as acute or chronic, without hemorrhage or perforation; J11.1 Influenza due to unidentified influenza virus with other respiratory manifestations; Z98.84 Bariatric surgery status; Z87.891 Personal history of nicotine dependence; Z78.1 Physical restraint status; Y92.89 Other specified places as the place of occurrence of the external cause; Z90.81 Acquired absence of spleen
CPT/HCPCS: 36415; 36600; 71045; 74176; 76700; 76937; 80048; 80051; 80053; 80076; 80320; 82040; 82140; 82375; 82465; 82805; 82962; 83605; 83735; 84100; 84134; 84145; 84478; 84484; 85025; 86850; 86900; 86920; 87070; 87075; 87426; 88305; 90670; 90686; 90733; 93005; 94002; 94003; 94640; 97116; 97161; 97164; 97166; 97530; 97535; 99291; A6261; C1725; C9113; J1100; J2185; J2270; J2405; J2543; J2704; J3475; J3480; J3490; J7030; J7040; J7042; J7050; J7060; P9016; P9047; Q9963; G0480